=== PATIENT | female | born 1985 | race Caucasian/White ===

== ENCOUNTER → 2020-09-20 16:20 | Outpatient (CLI) | payer OTHER, SELFPAY ==
--- NOTE | ~2020-09-20 | MM_ITS ---
EXAMINATION: MM screening [facility] w cristela HISTORY: Screening mammogram, family history of breast cancer in her sister. TECHNIQUE: Craniocaudal and mediolateral oblique 3-D tomosynthesis images were obtained and synthetic 2-D images were generated. CAD analysis was submitted and interpreted. COMPARISON: 09/11/2018 BREAST PARENCHYMAL COMPOSITION: The breasts are heterogeneously dense, which may obscure small masses . FINDINGS: An obscured low density mass in the outer right breast is stable, consistent with a benign finding. There is no evidence of suspicious mass, calcification, or architectural distortion to sugge st malignancy in either breast. There has been no suspicious interval change. IMPRESSION: 1. No mammographic evidence of malignancy. 2. Recommend routine screening mammography beginning at age 40 unless patient is calculated as high r isk for breast cancer. BI-RADS Category 2: Benign finding(s). Reviewed, dictated and finalized at location A. IMPRESSION: 1. No mammographic evidence of malignancy. 2. Recommend routine screening mammography beginning at age 40 unless patient i s calculated as high risk for breast cancer. BI-RADS Category 2: Benign finding(s).
== END ==
PROVIDERS: Visit Provider Nurse Practitioner Obstetrics & Gynecology
DX: Z12.31 Encounter for screening mammogram for malignant neoplasm of breast (principal)
CPT/HCPCS: 77063; 77067

== ENCOUNTER 2021-12-02 11:34 | Outpatient (CLI) | payer OTHER, SELFPAY ==
--- NOTE | 2021-12-02 11:53 | ECG_ITS ---
Measurements Intervals [place] Rate: 62 P: 3 WA: 135 QRS: 47 QRSD: 82 T: 19 QT: 429 QTc: 437 Interpretive Statements SINUS RHYTHM WITHIN NORMAL LIMITS NO PREVIOUS ECG AVAILABLE FOR COMPARISON Electronically Signed On 12-02-2021 12:56:10 CDT by Kaz Driscoll M.D.
== END 2021-12-02 11:35 | disposition home or self-care (01) ==
LOC: ANHCARD 11:36
PROVIDERS: Visit Provider Nurse Practitioner
DX: E66.9 Obesity, unspecified (principal)
CPT/HCPCS: 93005

== ENCOUNTER → 2022-01-09 14:01 | Outpatient (CLI) | payer OTHER, SELFPAY ==
--- NOTE | ~2022-01-09 | MM_ITS ---
EXAMINATION: MM screening [facility] w [facility] HISTORY: Screening mammogram, family history of breast cancer in her sister. TECHNIQUE: Craniocaudal and mediolateral oblique 3-D tomosynthesis images were obtained and synthetic 2-D images were generated. CAD analysis was submitted and interpreted. COMPARISON: 09/20/2020, 09/11/2018 BREAST PARENCHYMAL COMPOSITION: The breasts are heterogeneously dense, which may obscure small masses . FINDINGS: Again noted is a stable low-density mass in the outer right breast. There is no suspicious mass, calcification, or architectural distortion to suggest malignancy in either breast. There has be en no suspicious interval change. IMPRESSION: 1. No mammographic evidence of malignancy. 2. Recommend routine screening mammography in one year assuming the patient is calculated as high ris k for breast cancer. Otherwise recommend screening mammography beginning at age 40. BI-RADS Category 2: Benign finding(s). Reviewed, dictated and finalized at location A. IMPRESSION: 1. No mammographic evidence of malignancy. 2. Recommend routine screening mammography in one year assuming the patient is calculated as high risk for breast cancer. Otherwise recommend screening mammog chely beginning at age 40. BI-RADS Category 2: Benign finding(s).
== END ==
PROVIDERS: PCP Nurse Practitioner Obstetrics & Gynecology; Visit Provider Nurse Practitioner Obstetrics & Gynecology
DX: Z12.31 Encounter for screening mammogram for malignant neoplasm of breast (principal)
CPT/HCPCS: 77063; 77067

== ENCOUNTER → 2023-02-22 15:15 | Outpatient (CLI) | payer OTHER, SELFPAY ==
--- NOTE | ~2023-02-22 | MM_ITS ---
EXAMINATION: MM screening [facility] BI w cristela HISTORY: Screening mammogram, family history of breast cancer in her sister. TECHNIQUE: Craniocaudal and mediolateral oblique 3-D tomosynthesis images were obtained and synthetic 2-D images were generated. CAD analysis was submitted and interpreted. COMPARISON: 01/09/2022, 09/20/2020, 09/11/2018 BREAST PARENCHYMAL COMPOSITION: The breasts are heterogeneously dense, which may obscure small masses . FINDINGS: A stable low-density mass in the outer right breast is considered benign given the lack of interval change. No suspicious mass, calcification, or architectural distortion are identified in eit her breast to suggest malignancy. There has been no suspicious interval change. IMPRESSION: 1. No mammographic evidence of malignancy. 2. Recommend routine screening mammography in one year. BI-RADS Category 2: Benign finding(s). Reviewed, dictated and finalized at location A. CTION COUNSELOR
== END ==
PROVIDERS: PCP Nurse Practitioner Obstetrics & Gynecology; Visit Provider Nurse Practitioner Obstetrics & Gynecology
DX: Z12.31 Encounter for screening mammogram for malignant neoplasm of breast (principal)
CPT/HCPCS: 77063; 77067

== ENCOUNTER 2023-07-13 07:28 | Outpatient (CLI) | payer OTHER, SELFPAY ==
--- NOTE | ~2023-07-13 | XR_ITS ---
XR chest 2V DATE: 07/13/2023 08:00 INDICATION: Acute bronchitis TECHNIQUE: 2 views COMPARISON: None FINDINGS: Normal heart size. Multiple old calcified pulmonary granulomas. No hilar or mediastinal enl argement. No pulmonary infiltrate or consolidation, pleural effusion or pulmonary vascular congestion or pneumothorax is detected. Included skeletal structures are unremarkable. IMPRESSION: No active cardiopulmonary disease Reviewed, dictated and finalized at location B.
== END 2023-07-13 07:29 ==
DX: J20.9 Acute bronchitis, unspecified (principal)
CPT/HCPCS: 71046

== ENCOUNTER 2024-04-03 13:58 | Outpatient (CLI) | payer OTHER, SELFPAY ==
--- NOTE | ~2024-04-03 | MM_ITS ---
EXAMINATION: MM screening [facility] BI w cristela HISTORY: Screening TECHNIQUE: Craniocaudal and mediolateral oblique 3-D tomosynthesis images were obtained and synthetic 2-D images were generated. CAD analysis was submitted and interpreted. COMPARISON: 02/22/2023 and dating back to 09/11/2018 BREAST PARENCHYMAL COMPOSITION: There are scattered areas of fibroglandular density. FINDINGS: Stable parenchymal pattern without suspicious microcalcifications, architectural distortion, discrete masses or significant asymmetry. IMPRESSION: 1. No mammographic evidence of malignancy. 2. Recommend routine screening mammography in one year. BI-RADS Category 1: Negative Reviewed, dictated and finalized at location A. R TAKER
== END 2024-04-03 13:59 | disposition home or self-care (01) ==
DX: Z12.31 Encounter for screening mammogram for malignant neoplasm of breast (principal)
CPT/HCPCS: 77063; 77067

== ENCOUNTER 2024-08-11 12:39 | Outpatient (CLI) | payer OTHER, SELFPAY ==
--- NOTE | ~2024-08-11 | MR_ITS ---
EXAMINATION: MR knee LT wo con DATE: 08/11/2024 13:07 INDICATION: Left knee pain TECHNIQUE: Magnetic resonance imaging (MRI) of the affected knee was performed without intravenous co ntrast. Sequences included coronal PD-weighted FSE, coronal PD-weighted FS FSE, sagittal T2-weighted FSE, sagittal PD-weighted FS FSE and axial PD weighted fat saturated FSE. COMPARISON: None. FINDINGS: Medial compartment: Medial meniscus is normal. Shallow chondral surface regularity along the central weightbearing medial femoral condyle. Normal cartilage along the medial tibial plateau. Lateral compartment: Lateral meniscus is normal. Articular cartilage is normal. Patellofemoral compartment: Partial-thickness chondral ulceration and fissuring at the trochlear groove. Additional shallow chond ral fissuring at the patellar apical ridge and medial facet. Ligaments and tendons: Anterior and posterior cruciate ligaments are normal. The medial collateral ligament and fibular saqib ateral ligament complex are normal. The extensor mechanism is normal. The visualized medial and later al hamstring tendons as well as the iliotibial band are normal. Fluid: Physiologic amount of fluid in the joint space. No loose osteochondral bodies identified. Osseous/other: Normal marrow signal. No fracture or pathologic marrow replacing process. Mild edema in the superfici al suprapatellar fat pad which can be seen with fat pad impingement syndrome. IMPRESSION: 1. Mild osteoarthritis with moderate grade chondromalacia in the patellofemoral compartment and to le sser degree the medial compartment. 2. Mild edema in the superficial suprapatellar fat pad which can be seen with fat pad impingement syn drome. Reviewed, dictated and finalized at location A. IMPRESSION: 1. Mild osteoarthritis with moderate grade chondromalacia in the patellofemoral compartment and to lesser degree the medial compartment. 2. Mild edema in the superficial suprapatellar fat pad which can be seen with f at pad impingement syndrome.
== END 2024-08-11 12:40 | disposition home or self-care (01) ==
LOC: MICIMG 12:40
DX: M17.12 Unilateral primary osteoarthritis, left knee (principal)
CPT/HCPCS: 73721

== ENCOUNTER 2024-08-18 14:45 | Outpatient (CLI) | payer OTHER, SELFPAY ==
--- NOTE | ~2024-08-18 | XR_ITS ---
EXAM: XR knee LT min 4V DATE: 08/18/2024 15:16 HISTORY: Pain in left knee . COMPARISON: None available. FINDINGS: Normal mineralization. No fracture or dislocation. No lytic or blastic lesion. Mild medial joint space narrowing. Minimal tricompartmental osteophytosis. No erosion or periosteal change. Soft tissues within normal limits. IMPRESSION: Mild tricompartmental left knee osteoarthritis. Reviewed, dictated and finalized at location K.
== END 2024-08-18 14:46 | disposition home or self-care (01) ==
DX: M17.12 Unilateral primary osteoarthritis, left knee (principal)
CPT/HCPCS: 73564